=== PATIENT | female | born 2000 | race American Indian/Alaskan Native ===

== ENCOUNTER 2019-09-22 20:38 | Observation (INO) | payer MEDICAID ==
[2019-09-22] MEDS ORDERED: LACTATED RINGERS 1,000 ML IV ONE (20:43)
[2019-09-22 21:11] LABS: Hematocrit 36.1 % (30.3-42.9); Mean Corpuscular HGB Conc 33 % (30-34); Mean Corpuscular Volume 81 fl (79-97); Platelet Count 172 K/mm3 (140-440); Red Blood Count 4.45 M/mm3 (3.65-5.03); Red Cell Distribution Width 14.9 % (13.2-15.2)
[2019-09-22 21:24] LABS: Bacteria,Urine 1+ /HPF (Negative); Bilirubin,Urine NEG (Negative); Blood,Urine NEG (Negative); Color,Urine Yellow (Yellow); Mucus,Urine 3+ /HPF; Urobilinogen,Urine < 2.0 mg/dL (<2.0)
[2019-09-22 21:32] LABS: Alanine Aminotransferase 10 units/L (7-56); Uric Acid 6.1 mg/dL (3.5-7.6)
[2019-09-22 21:37] LABS: Amphetamine Screen,Urine PRESUMPTIVE NEGATIVE; Benzodiazepines Screen,Urine PRESUMPTIVE NEGATIVE; Cocaine Screen,Urine PRESUMPTIVE NEGATIVE; Methadone Screen,Urine PRESUMPTIVE NEGATIVE; Opiate Screen,Urine PRESUMPTIVE NEGATIVE
[2019-09-22 21:57] LABS: Cannabinoid Screen,Urine PRESUMPTIVE POSITIVE
[2019-09-22] MEDS ORDERED: MAGNESIUM SULFATE 40GM/1000ML 40 GM/1,000 ML BAG IV SCH (23:00)
[2019-09-22] MEDS ORDERED: MAGNESIUM SULFATE 4 GM/100 ML BAG IV ONE (23:01)
[2019-09-22] MEDS ORDERED: SENNOSIDES/DOCUSATE SODIUM 8.6/50 MG TAB PO PRN (23:07)
[2019-09-22] MEDS ORDERED: diphenhydrAMINE 25 MG CAP PO PRN (23:07)
[2019-09-22] MEDS ORDERED: SODIUM CHLORIDE NASAL SPRAY 44ML NS PRN (23:07)
[2019-09-22] MEDS ORDERED: MAGNESIUM HYDROXIDE (MOM) ORAL LIQD UDC PO PRN (23:07)
[2019-09-22] MEDS ORDERED: ONDANSETRON 4 MG/2 ML INJ IV PRN (23:07)
[2019-09-22] MEDS ORDERED: guaiFENesin DM 200/20 MG ORAL LIQD 10 ML PO PRN (23:07)
[2019-09-22] MEDS ORDERED: ACETAMINOPHEN 325 MG TAB PO PRN (23:07)
[2019-09-22] MEDS ORDERED: WITCH HAZEL/ GLYCERIN PAD TP PRN (23:07)
[2019-09-22] MEDS ORDERED: SIMETHICONE 80 MG CHEW TAB PO PRN (23:07)
[2019-09-22] MEDS ORDERED: DOCUSATE SODIUM 100 MG CAP PO PRN (23:07)
[2019-09-22] MEDS ORDERED: PSEUDOEPHEDRINE 30 MG TAB PO PRN (23:07)
--- NOTE | 2019-09-22 23:20 | History and Physical Report ---
History of Present Illness Date of examination: 09/22/19 Date of admission: 09/22/19 22:52 Chief complaint: rectal pressure History of present illness: This is a 18 yo G 2P1 at 30 weeks here for rectal pressure. She is a [facility] patient came her without records. Seen by Chris yesterday was supposed to collect a 24 hr urine. Hx of labor. Records sent for but unavailable Past History Past Medical History: no pertinent history Past Surgical History: no surgical history Family/Genetic History: none Social history: single, smoking. denies: alcohol abuse, prescription drug abuse - Obstetrical History Expected Date of Delivery: 12/01/19 Actual Gestation: 30 Week(s) 0 Day(s) : 2 Para: 1 Hx # Term Pregnancies: 0 Number of Pregnancies: 1 Spontaneous Abortions: 0 Induced : 0 Number of Living Children: 1 Medications and Allergies Allergies Allergy/AdvReac Type Severity Reaction Status Date / Time No Known Allergies Allergy Verified 09/22/19 20:42 Home Medications Medication Instructions Recorded Confirmed Last Taken Type Acetaminophen [Tylenol] 2 tab PO 09/22/19 09/22/19 15:00 History Aspirin [Adult Aspirin] 1 tab PO DAILY 09/22/19 09/22/19 09/22/19 History Active Meds: Active Medications Acetaminophen (Tylenol) 650 mg PO Q4H PRN PRN Reason: Pain MILD(1-3)/Fever >100.5/BARROS Al Hydrox/Mg Hydrox/Simethicone (Alum-Mag Hydrox-Simeth [id number]/5ml) 30 ml PO Q6H PRN PRN Reason: Indigestion Betamethasone Acet/Betameth SodPhos (Celestone Soluspan) 12 mg IM Q24HR MAURI Stop: 09/24/19 10:01 Diphenhydramine HCl (Benadryl) 25 mg PO Q6H PRN PRN Reason: Itching Docusate Sodium (Colace) 100 mg PO Q12H PRN PRN Reason: Constipation Guaifenesin (Guaifenesin Dm Syrup) 10 ml PO Q6H PRN PRN Reason: Cough Magnesium Sulfate (Magnesium Sulfate 4gm/100ml) 4 gm in 100 mls @ 300 mls/hr IV ONCE ONE Stop: 09/22/19 23:20 Lactated Ringer's (Lactated Ringers) 1,000 mls @ 125 mls/hr IV DIRECT MAURI Magnesium Sulfate (Magnesium Sulfate 40gm/1000ml) 40 gm in 1,000 mls @ 54 mls/hr IV DIRECT MAURI Magnesium Hydroxide (Milk Of Magnesia) 30 ml PO QHS PRN PRN Reason: Laxative Effect Multivitamins/Iron/Calcium ( Vitamin) 1 each PO QDAY MAURI Ondansetron HCl (Zofran) 4 mg IV Q6H PRN PRN Reason: Nausea And Vomiting Pseudoephedrine HCl (Sudafed) 30 mg PO Q4H PRN PRN Reason: Nasal Congestion Senna/Docusate Sodium (Senokot S) 2 tab PO Q12H PRN PRN Reason: Laxative Effect Simethicone (Mylicon) 80 mg PO Q6H PRN PRN Reason: Gas pain Sodium Chloride (Sodium Chloride Flush Syringe 10 Ml) 10 ml IV PRN PRN PRN Reason: LINE FLUSH Sodium Chloride (Deep Sea) 2 spray NS Q4H PRN PRN Reason: Congestion Witch Carrie/Glycerin (Tucks Pad) 1 each TP PRN PRN PRN Reason: Hemorrhoids Review of Systems All systems: negative - Vital Signs Vital signs: Vital Signs Pulse BP 75 149/97 09/22/19 20:42 09/22/19 20:42 Temp Pulse Resp BP Pulse Ox 98.1 F 66 18 177/113 100 09/22/19 21:12 09/22/19 22:40 09/22/19 21:12 09/22/19 22:30 09/22/19 22:40 - Physical Exam Breasts: Positive: normal Cardiovascular: Regular rate, Normal S1 Lungs: Positive: Clear to auscultation, Normal air movement Abdomen: Positive: normal appearance, soft, normal bowel sounds. Negative: distention, tenderness, guarding Genitourinary (Female): Positive: normal external genitalia, normal perenium Vagina: Positive: normal moisture Uterus: Positive: normal size, normal contour Anus/Rectum: Positive: normal perianal skin Extremities: Positive: normal Deep Tendon Reflex Grade: Normal +2 - Obstetrical FHR: category 1 Results Result Diagrams: 09/22/19 20:54 09/22/19 20:54 Abnormal lab results 09/22/19 09/22/19 Range/Units 20:54 20:54 MCH 27 L (28-32) pg Creatinine 0.6 L (0.7-1.2) mg/dL Lactate Dehydrogenase 320 H (91-180) units/L All other labs normal. Assessment and Plan A/P IUP 30 weeks Elevated BP /Chronic HTN assess for Preeclampsia walk in patient Admit US for presentation , efw, rosi BMZ now PIH labs Mag 4g and 2g continuous monitoring gaspar close monitor of maternal and status
[2019-09-22] MEDS: LACTATED RINGERS 1,000 ML IV SCH (23:35)
[2019-09-22] MEDS ORDERED: MAGNESIUM SULFATE IV SCH (23:45)
[2019-09-22] MEDS ORDERED: SODIUM CHLORIDE 0.9% IV SCH (23:45)
[2019-09-23] MEDS ORDERED: BETAMET ACET/BETAMET NA PH 6 MG/ML INJ 5 ML MDV IM SCH
--- NOTE | 2019-09-23 00:31 | Ultrasound Report ---
Limited OB ultrasound. 09/22/2019. HISTORY: contractions. FINDINGS: A viable intrauterine in the cephalic position is dated 28 weeks 6 days. he art tones are 145 bpm. The placenta is located along the right lateral aspect. Amniotic fluid index is 9.5 cm. Cervical length measures 1.8 cm. IMPRESSION: 1. Viable intrauterine dated 20 weeks 6 days. 2. Cervical length 1.8 cm. Signer Name: John Blair MD Signed: 09/23/2019 12:26 AM Workstation Name: [id number]
[2019-09-23] MEDS ORDERED: fentaNYL 100 MCG/2 ML INJ IV ONE ×2 (02:50→09:17)
[2019-09-23] MEDS ORDERED: fentaNYL 100 MCG/2 ML INJ ONE (02:52)
[2019-09-23] MEDS: ALUM-MAG HYDROXIDE-SIMETHICONE 200-200-20MG/5ML ORAL LIQD 30 ML PO PRN ×2 (04:24→15:49)
--- NOTE | 2019-09-23 09:04 | Progress Note ---
Assessment and Plan A/P IUP 30+1 day Elevated BP /Chronic HTN assess for Preeclampsia walk in patient S/p admission 24 hr urine collection to obtain US shows perhaps SGA s/p 1 dose of bmz today next dose PIH labs normal ON Mag 4g and 2g continuous monitoring close monitor of maternal and status Await MFM consult Subjective - Subjective Date of service: 09/23/19 Principal diagnosis: Elevated BP, IUP 30 weeks , assess for Pree Interval history: This is a 18 yo G 2P1 at 30 weeks here for rectal pressure. She is a [place] patient came her without records. Seen by Chris yesterday was supposed to collect a 24 hr urine. Hx of labor. Records sent for but unavailable Patient reports: movement normal, no new complaints, no loss of fluid, no vaginal bleeding, no contractions Objective - Vital Signs Vital Signs: Vital Signs - 12hr 09/22/19 09/22/19 09/22/19 21:01 21:12 21:15 Temperature 98.1 F Pulse Rate 67 76 Respiratory 18 Rate Blood Pressure 173/91 156/86 O2 Sat by Pulse Oximetry 09/22/19 09/22/19 09/22/19 21:30 22:00 22:07 Temperature Pulse Rate 65 56 L 60 Respiratory Rate Blood Pressure 175/94 180/109 182/98 O2 Sat by Pulse Oximetry 09/22/19 09/22/19 09/22/19 22:15 22:30 22:35 Temperature Pulse Rate 64 66 61 Respiratory Rate Blood Pressure 180/101 177/113 O2 Sat by Pulse 98 99 Oximetry 09/22/19 09/22/19 09/22/19 22:40 23:22 23:37 Temperature Pulse Rate 66 57 L 80 Respiratory Rate Blood Pressure 173/106 175/109 O2 Sat by Pulse 100 100 Oximetry 09/22/19 09/22/19 09/22/19 23:42 23:47 23:48 Temperature Pulse Rate 74 83 Respiratory Rate Blood Pressure O2 Sat by Pulse 100 82 L 84 Oximetry 09/22/19 09/22/19 09/23/19 23:52 23:57 00:00 Temperature Pulse Rate 73 71 71 Respiratory Rate Blood Pressure 143/80 143/80 O2 Sat by Pulse 99 98 Oximetry 09/23/19 09/23/19 09/23/19 00:02 00:07 00:09 Temperature Pulse Rate 82 77 83 Respiratory Rate Blood Pressure 152/84 O2 Sat by Pulse 90 100 Oximetry 09/23/19 09/23/19 09/23/19 00:10 00:12 00:17 Temperature Pulse Rate 91 H 74 Respiratory 18 Rate Blood Pressure O2 Sat by Pulse 100 99 Oximetry 09/23/19 09/23/19 09/23/19 00:22 00:27 00:32 Temperature Pulse Rate 79 66 71 Respiratory Rate Blood Pressure 147/88 O2 Sat by Pulse 100 100 99 Oximetry 09/23/19 09/23/19 09/23/19 00:37 00:42 00:47 Temperature Pulse Rate 68 70 76 Respiratory Rate Blood Pressure O2 Sat by Pulse 99 99 96 Oximetry 09/23/19 09/23/19 09/23/19 00:51 00:52 00:55 Temperature Pulse Rate 74 73 65 Respiratory Rate Blood Pressure 171/82 O2 Sat by Pulse 93 95 Oximetry 09/23/19 09/23/19 09/23/19 01:05 01:10 01:15 Temperature 97.7 F Pulse Rate 68 Respiratory 12 18 Rate Blood Pressure O2 Sat by Pulse 98 Oximetry 09/23/19 09/23/19 09/23/19 01:20 01:25 01:27 Temperature Pulse Rate 74 70 68 Respiratory Rate Blood Pressure 158/100 O2 Sat by Pulse 100 100 Oximetry 09/23/19 09/23/19 09/23/19 01:30 01:35 01:39 Temperature Pulse Rate 69 74 81 Respiratory Rate Blood Pressure O2 Sat by Pulse 100 99 77 L Oximetry 09/23/19 09/23/19 09/23/19 01:40 01:44 01:45 Temperature Pulse Rate 74 73 70 Respiratory Rate Blood Pressure 170/99 O2 Sat by Pulse 100 99 Oximetry 09/23/19 09/23/19 09/23/19 01:50 01:55 02:14 Temperature Pulse Rate 75 78 86 Respiratory Rate Blood Pressure 174/98 O2 Sat by Pulse 98 98 Oximetry 09/23/19 09/23/19 09/23/19 02:44 02:57 02:58 Temperature Pulse Rate 80 75 93 H Respiratory Rate Blood Pressure 179/117 157/90 O2 Sat by Pulse 100 Oximetry 09/23/19 09/23/19 09/23/19 03:03 03:08 03:13 Temperature Pulse Rate 84 74 75 Respiratory Rate Blood Pressure 149/91 O2 Sat by Pulse 100 100 100 Oximetry 09/23/19 09/23/19 09/23/19 03:18 03:23 03:28 Temperature Pulse Rate 76 79 78 Respiratory Rate Blood Pressure O2 Sat by Pulse 100 100 100 Oximetry 09/23/19 09/23/19 09/23/19 03:33 03:38 03:43 Temperature Pulse Rate 75 75 79 Respiratory Rate Blood Pressure 146/91 O2 Sat by Pulse 100 100 100 Oximetry 09/23/19 09/23/19 09/23/19 03:48 03:53 03:58 Temperature Pulse Rate 70 74 73 Respiratory Rate Blood Pressure O2 Sat by Pulse 100 100 100 Oximetry 09/23/19 09/23/19 09/23/19 04:03 04:08 04:13 Temperature Pulse Rate 75 70 84 Respiratory Rate Blood Pressure O2 Sat by Pulse 100 100 100 Oximetry 09/23/19 09/23/19 09/23/19 04:14 04:15 04:26 Temperature Pulse Rate 90 76 80 Respiratory Rate Blood Pressure 142/94 O2 Sat by Pulse 88 100 Oximetry 09/23/19 09/23/19 09/23/19 04:31 04:36 04:41 Temperature Pulse Rate 72 83 75 Respiratory Rate Blood Pressure O2 Sat by Pulse 100 99 100 Oximetry 09/23/19 09/23/19 09/23/19 04:44 04:46 04:51 Temperature Pulse Rate 75 78 85 Respiratory Rate Blood Pressure 148/79 O2 Sat by Pulse 100 99 Oximetry 09/23/19 09/23/19 09/23/19 04:56 05:01 05:06 Temperature Pulse Rate 75 85 98 H Respiratory Rate Blood Pressure O2 Sat by Pulse 100 99 100 Oximetry 09/23/19 09/23/19 09/23/19 05:11 05:13 05:16 Temperature Pulse Rate 84 84 80 Respiratory Rate Blood Pressure 133/83 O2 Sat by Pulse 100 100 Oximetry 09/23/19 09/23/19 09/23/19 05:21 05:43 06:14 Temperature Pulse Rate 78 92 H 83 Respiratory Rate Blood Pressure 142/82 138/82 O2 Sat by Pulse 100 Oximetry 09/23/19 09/23/19 09/23/19 06:31 06:36 06:41 Temperature Pulse Rate 78 83 82 Respiratory Rate Blood Pressure O2 Sat by Pulse 99 98 98 Oximetry 09/23/19 09/23/19 09/23/19 06:43 06:46 06:51 Temperature Pulse Rate 83 90 85 Respiratory Rate Blood Pressure 135/85 O2 Sat by Pulse 97 97 Oximetry 09/23/19 09/23/19 09/23/19 06:56 07:01 07:06 Temperature Pulse Rate 84 86 82 Respiratory Rate Blood Pressure O2 Sat by Pulse 97 97 97 Oximetry 09/23/19 09/23/19 09/23/19 07:11 07:13 07:16 Temperature Pulse Rate 85 86 88 Respiratory Rate Blood Pressure 136/77 O2 Sat by Pulse 97 97 Oximetry 09/23/19 09/23/19 09/23/19 07:21 07:26 07:31 Temperature Pulse Rate 82 79 75 Respiratory Rate Blood Pressure O2 Sat by Pulse 97 97 98 Oximetry 09/23/19 09/23/19 09/23/19 07:36 07:38 07:41 Temperature Pulse Rate 81 86 86 Respiratory Rate Blood Pressure 139/86 O2 Sat by Pulse 98 97 Oximetry 09/23/19 09/23/19 09/23/19 07:43 07:46 07:51 Temperature Pulse Rate 93 H 84 83 Respiratory Rate Blood Pressure 144/84 O2 Sat by Pulse 97 97 Oximetry 09/23/19 09/23/19 09/23/19 07:56 08:01 08:06 Temperature Pulse Rate 90 81 79 Respiratory Rate Blood Pressure O2 Sat by Pulse 97 97 97 Oximetry 09/23/19 09/23/19 09/23/19 08:11 08:14 08:16 Temperature Pulse Rate 89 76 87 Respiratory Rate Blood Pressure 136/88 O2 Sat by Pulse 97 98 Oximetry 09/23/19 09/23/19 09/23/19 08:21 08:26 08:31 Temperature Pulse Rate 78 87 95 H Respiratory Rate Blood Pressure O2 Sat by Pulse 98 99 98 Oximetry 09/23/19 09/23/19 09/23/19 08:36 08:41 08:42 Temperature 97.7 F Pulse Rate 89 88 Respiratory Rate Blood Pressure 143/95 O2 Sat by Pulse 98 99 Oximetry 09/23/19 09/23/19 09/23/19 08:45 08:46 08:51 Temperature Pulse Rate 85 89 78 Respiratory Rate Blood Pressure 144/98 O2 Sat by Pulse 100 99 Oximetry 09/23/19 08:56 Temperature Pulse Rate 84 Respiratory Rate Blood Pressure O2 Sat by Pulse 99 Oximetry - Exam Breasts: normal Cardiovascular: Regular rate, Normal S1 Lungs: Clear to auscultation, Normal air movement Abdomen: Present: normal appearance, soft, normal bowel sounds. Absent: distention, tenderness, guarding Uterus: Present: normal, firm, fundal height above umbilicus. Absent: bogginess, tenderness FHR: auscultation normal, category 1 Extremities: normal Deep Tendon Reflex Grade: Normal +2 - Labs Labs: Abnormal Labs 09/22/19 09/22/19 09/23/19 20:54 20:54 06:10 MCH 27 L Creatinine 0.6 L Magnesium 4.50 H Lactate Dehydrogenase 320 H Laboratory Results - last 24 hr 09/22/19 09/22/19 09/22/19 20:54 20:54 20:54 WBC 8.6 RBC 4.45 Hgb 12.0 Hct 36.1 MCV 81 MCH 27 L MCHC 33 RDW 14.9 Plt Count 172 Creatinine 0.6 L Estimated GFR > 60 Uric Acid 6.1 Magnesium AST 18 ALT 10 Lactate Dehydrogenase 320 H Urine Color Yellow Urine Turbidity Clear Urine pH 6.0 Ur Specific [place] 1.026 Urine Protein 100 mg/dl Urine Glucose (UA) Neg Urine Ketones Neg Urine Blood Neg Urine Nitrite Neg Urine Bilirubin Neg Urine Urobilinogen < 2.0 Ur Leukocyte Esterase Sm Urine WBC (Auto) 2.0 Urine RBC (Auto) 3.0 U Epithel Cells (Auto) 3.0 Urine Bacteria (Auto) 1+ Urine Mucus 3+ Urine Opiates Screen Urine Methadone Screen Ur Barbiturates Screen Ur Phencyclidine Scrn Ur Amphetamines Screen U Benzodiazepines Scrn Urine Cocaine Screen U Marijuana (THC) Screen Drugs of Abuse Note Syphilis IgG Antibody Hep Bs Antigen Rubella IgG Antibody Blood Type Antibody Screen 09/22/19 09/22/19 09/22/19 20:54 22:00 22:00 WBC RBC Hgb Hct MCV MCH MCHC RDW Plt Count Creatinine Estimated GFR Uric Acid Magnesium AST ALT Lactate Dehydrogenase Urine Color Urine Turbidity Urine pH Ur Specific [place] Urine Protein Urine Glucose (UA) Urine Ketones Urine Blood Urine Nitrite Urine Bilirubin Urine Urobilinogen Ur Leukocyte Esterase Urine WBC (Auto) Urine RBC (Auto) U Epithel Cells (Auto) Urine Bacteria (Auto) Urine Mucus Urine Opiates Screen Presumptive negative Urine Methadone Screen Presumptive negative Ur Barbiturates Screen Presumptive negative Ur Phencyclidine Scrn Presumptive negative Ur Amphetamines Screen Presumptive negative U Benzodiazepines Scrn Presumptive negative Urine Cocaine Screen Presumptive negative U Marijuana (THC) Screen Presumptive positive Drugs of Abuse Note Disclamer Syphilis IgG Antibody Non-reactive Hep Bs Antigen Rubella IgG Antibody Blood Type A POSITIVE Antibody Screen Negative 09/22/19 09/22/19 09/23/19 22:00 22:00 06:10 WBC RBC Hgb Hct MCV MCH MCHC RDW Plt Count Creatinine Estimated GFR Uric Acid Magnesium 4.50 H AST ALT Lactate Dehydrogenase Urine Color Urine Turbidity Urine pH Ur Specific [place] Urine Protein Urine Glucose (UA) Urine Ketones Urine Blood Urine Nitrite Urine Bilirubin Urine Urobilinogen Ur Leukocyte Esterase Urine WBC (Auto) Urine RBC (Auto) U Epithel Cells (Auto) Urine Bacteria (Auto) Urine Mucus Urine Opiates Screen Urine Methadone Screen Ur Barbiturates Screen Ur Phencyclidine Scrn Ur Amphetamines Screen U Benzodiazepines Scrn Urine Cocaine Screen U Marijuana (THC) Screen Drugs of Abuse Note Syphilis IgG Antibody Hep Bs Antigen Non-reactive Rubella IgG Antibody Immune Blood Type Antibody Screen
[2019-09-23] MEDS: LACTATED RINGERS 1,000 ML IV SCH (09:39)
[2019-09-23] MEDS ORDERED: PRENATAL VIT27-FE FUMARATE-FOLIC ACID VIT TAB PO SCH (10:00)
[2019-09-23] MEDS ORDERED: ACETAMINOPHEN W/CODEINE 300-30 MG TAB PO ONE (13:20)
--- NOTE | 2019-09-23 16:12 | Consultation ---
History of Present Illness Consult date: 09/23/19 Requesting physician: MARIA DEL CARMEN CARO Reason for consult: gestational hypertension History of present illness: To: Aureliano Caro MD et al, From: Charlene Elizondo M.D. RE: WADE CANCHOLA (: 98 ) IUP at 28 weeks 6 days gestation (?). Chronic hypertension. Rule out superimposed preeclampsia New onset headache. Await medical records from [facility] DATE: Monday, September 23, 2019 As you are aware, this is a 18 year old para 0101 who is currently at 28 weeks 6 days (?) gestation based on an MYRA of 12/01/19 Patient has been followed at [facility] and presented to [facility] with a complaint of elevated blood pressure at home. Her history is significant for a previous complicated by superimposed preeclampsia with HELLP syndrome. Patient was hospitalized and noted to have elevated blood pressure. At the time of my evaluation she had mild headache but denied shortness of breath. Her 24 hour urine is PENDING. She denied or dizziness or blurred vision. Her blood pressure is labile (see below). There are no signs of placental abruption. Her FHR is Category 1. Past History Past Medical History: no pertinent history Past Surgical History: no surgical history Family/Genetic History: none - Obstetrical History : 2 Medications and Allergies Allergies Allergy/AdvReac Type Severity Reaction Status Date / Time No Known Allergies Allergy Verified 09/22/19 20:42 Home Medications Medication Instructions Recorded Confirmed Last Taken Type Aspirin [Adult Aspirin] 1 tab PO DAILY 09/22/19 09/23/19 09/22/19 History Active Meds: Active Medications Acetaminophen (Tylenol) 650 mg PO Q4H PRN PRN Reason: Pain MILD(1-3)/Fever >100.5/BARROS Last Admin: 09/23/19 00:10 Dose: 650 mg Documented by: Al Hydrox/Mg Hydrox/Simethicone (Alum-Mag Hydrox-Simeth [id number]/5ml) 30 ml PO Q6H PRN PRN Reason: Indigestion Last Admin: 09/23/19 15:49 Dose: 30 ml Documented by: Betamethasone Acet/Betameth SodPhos (Celestone Soluspan) 12 mg IM Q24H MAURI Stop: 09/24/19 00:01 Last Admin: 09/22/19 23:37 Dose: 12 mg Documented by: Diphenhydramine HCl (Benadryl) 25 mg PO Q6H PRN PRN Reason: Itching Docusate Sodium (Colace) 100 mg PO Q12H PRN PRN Reason: Constipation Guaifenesin (Guaifenesin Dm Syrup) 10 ml PO Q6H PRN PRN Reason: Cough Last Admin: 09/23/19 00:29 Dose: 10 ml Documented by: Lactated Ringer's (Lactated Ringers) 1,000 mls @ 125 mls/hr IV DIRECT [facility] Last Admin: 09/23/19 09:39 Dose: 125 mls/hr Documented by: Magnesium Sulfate (Magnesium Sulfate 40gm/1000ml) 40 gm in 1,000 mls @ 54 mls/hr IV DIRECT [facility] Last Admin: 09/22/19 23:49 Dose: 54 mls/hr Documented by: Labetalol HCl (Labetalol) 100 mg PO BID [facility] Last Admin: 09/23/19 09:37 Dose: 100 mg Documented by: Labetalol HCl (Labetalol) 20 mg IV Q30MIN PRN PRN Reason: Blood Pressure Magnesium Hydroxide (Milk Of Magnesia) 30 ml PO QHS PRN PRN Reason: Laxative Effect Multivitamins/Iron/Calcium ( Vitamin) 1 each PO QDAY [facility] Last Admin: 09/23/19 09:37 Dose: 1 each Documented by: Ondansetron HCl (Zofran) 4 mg IV Q6H PRN PRN Reason: Nausea And Vomiting Pseudoephedrine HCl (Sudafed) 30 mg PO Q4H PRN PRN Reason: Nasal Congestion Senna/Docusate Sodium (Senokot S) 2 tab PO Q12H PRN PRN Reason: Laxative Effect Simethicone (Mylicon) 80 mg PO Q6H PRN PRN Reason: Gas pain Sodium Chloride (Sodium Chloride Flush Syringe 10 Ml) 10 ml IV PRN PRN PRN Reason: LINE FLUSH Sodium Chloride (Deep Sea) 2 spray NS Q4H PRN PRN Reason: Congestion Witch Carrie/Glycerin (Tucks Pad) 1 each TP PRN PRN PRN Reason: Hemorrhoids - Vital Signs Vital signs: Vital Signs Pulse BP 75 149/97 09/22/19 20:42 09/22/19 20:42 Temp Pulse Resp BP Pulse Ox 97.9 F 95 H 18 145/89 98 09/23/19 15:50 09/23/19 15:22 09/23/19 01:10 09/23/19 15:22 09/23/19 11:48 Results Result Diagrams: 09/22/19 20:54 09/22/19 20:54 Abnormal lab results 09/22/19 09/22/19 09/23/19 Range/Units 20:54 20:54 06:10 MCH 27 L (28-32) pg Creatinine 0.6 L (0.7-1.2) mg/dL Magnesium 4.50 H (1.7-2.3) mg/dL Lactate Dehydrogenase 320 H (91-180) units/L 09/23/19 Range/Units 14:15 MCH (28-32) pg Creatinine (0.7-1.2) mg/dL Magnesium 4.60 H (1.7-2.3) mg/dL Lactate Dehydrogenase (91-180) units/L All other labs normal. Assessment and Plan PAST OBSETRICAL HISTORY: 2019: CS at 27 weeks due to severe superimposed preeclampsia with HELLP and thrombocytopenia. BW: 1 pound 9 oz. Patient does NOT have a history of CHTN but she has been taking Labetalol prior to admission. Since hospitalized she has been on Labetalol. Current Blood pressure: 171/88, 165/87, 114/112, 159/91, 170/105 PREVIOUS SURGICAL HISTORY: CS in 2018 Breast reduction Biopsy at [place] (type unknown) See report in patients chart. PAST MEDICAL HISTORY: See reports in patient's chart. ULTRASOUND AT [facility] (?): There is a single viable intrauterine with Viable IUP at 20 weeks 6 days Tried to contact [facility] to confirm EFW. No answer NO biometry noted. No ultrasound from [facility] available NEED TO GET REPEAT ULTRASOUND WITH EFW, AND CONFIRMATION OF EGA Right lateral placenta intact. heart rate 145 beats per minute. CODIE is 9.5 cm. AVAILABLE LABS: 24 HOUR URINE: PENDING. WBC: 8.6 Hgb: 12.0 HCT: 36.1 PLT: 172 AST: 18 ALT: 10 ASSESSMENT IUP at 28 weeks 6 days gestation (by LMP) care at [facility], no records available. No previous ultrasounds available. Chronic hypertension. Rule out superimposed preeclampsia New onset headache Recommend REPEAT ULTRASOUND FOR EFW, BIOMETRY AND CONFIRMATION OF EGA. Stabalize blood pressure due to suspected superimposed preeclampsia Increase Labetalol Monitor Patient is NOT a candidate for discharge.. RECOMMENDATIONS: 1. We would recommend continued inpatient management for this patient. 2. Patient is NOT a candidate for outpatient management. 3. Recommend REPEAT ULTRASOUND 4. Steroids for lung maturation. 5. We are in agreement with her current management. 6. Magnesium sulfate for eclampsia prophylaxis and neuroprotection 7. Call [facility] with results of ultrasoun. 8. We agree with increased Labetalol. 9. At present; there is NO indication for delivery; however I would monitor closely for the signs and symptoms of severe preeclampsia noted below. 10. At 28 weeks gestation (if confirmed by follow-up ultrasound and [facility]); it would appear that there is some benefit to an expectant management protocol to prolong gestation in order to improve outcome without increasing maternal morbidity. 11. In a patient with MILD preeclampsia we recommend DELIVERY at 37 weeks. 12. In a patient with SEVERE preeclampsia we recommend DELIVERY either AT DIAGNOSIS or at 34 weeks gestation. Reference: REFERENCE: Medically indicated late- and early-term deliveries. Committee Opinion No. [id number]. [employer]. Obstet Gynecol 2013;121:63212. 13. The indications for discontinuation of expectant management and DELIVERY in this patient would include ANY of the following: heart rate abnormalities, (ie, bradycardia , repetitive late or variable decelerations) Significant new onset proteinuria Thrombocytopenia Hemolysis, Elevation in liver function tests Blood pressure that is very labile or poorly controlled with reasonable doses of intravenous labetalol Symptoms of severe pre-eclampsia epigastric discomfort, headache, dizziness, blurred vision, RUQ pain, seizure. Standard obstetrical indications Thank you for allowing us to participate in the care of this patient. We look forward to the opportunity to assist in her continued management. If you have any questions, we may be reached [phone]. Charlene Elizondo M.D.
--- NOTE | 2019-09-23 18:27 | Ultrasound Report ---
ULTRASOUND OBSTETRIC Indication: Need biomety and EFW Findings: There is a single intrauterine . BPD = 7.3 cm = 29 weeks, 1 day(s). Head circumference = 27.1 cm = 29 weeks, 4 day(s). Abdominal circumference = 22.2 cm = 26 weeks, 4 day(s). Femur length = 5.3 cm = 28 weeks, 1 day(s). Overall estimated sonographic age = 28 weeks, 3 day(s). heart rate is 120 beats per minute. Estimated weight is 1094 grams position is cephalic. Cervix appears closed. movement is present. Placenta is posterior and grade 1 . Amniotic fluid volume appears normal. Amniotic fluid index is 11.5 cm. Maternal adnexa appear normal. Visualized structures appear grossly normal. Impression: 1. Single living intrauterine with estimated sonographic age of 28 weeks, 3 day(s). 2. No sonographic abnormality identified. Signer Name: Milton Mcgee MD Signed: 09/23/2019 6:23 PM Workstation Name: [id number]
[2019-09-23] MEDS ORDERED: METOCLOPRAMIDE 10 MG TAB PO PRN (19:54)
[2019-09-23] MEDS ORDERED: ZOLPIDEM 5 MG TAB PO PRN (19:55)
[2019-09-23 21:50] VITALS: BP 155/79
[2019-09-24] MEDS ORDERED: ASPIRIN 81 MG TAB CHEW PO SCH (10:00)
[2019-10-02 13:22] LABS: HIV-1 Antibody Differentiation SEE SCANNED RESULT; HIV-2 Antibody Differentiation SEE SCANNED RESULT
== END 2019-09-23 23:10 | disposition left against medical advice (07) ==
LOC: TRG 20:38 → LD 22:52
PROVIDERS: ADMIT Obstetrics & Gynecology; ATTEND Obstetrics & Gynecology
DX: O16.3 Unspecified maternal hypertension, third trimester (principal); O26.893 Other specified pregnancy related conditions, third trimester; O99.333 Smoking (tobacco) complicating pregnancy, third trimester; F17.200 Nicotine dependence, unspecified, uncomplicated; R51 Headache; Z3A.30 30 weeks gestation of pregnancy; Z79.82 Long term (current) use of aspirin
CPT/HCPCS: 36415; 59025; 76805; 80307; 81001; 82565; 83615; 83735; 84450; 84460; 84550; 85027; 86592; 86689; 86706; 86762; 86850; 86900; 86901; 96365; 96366; 96372; 96375; 96376; G0378; J0702; J3010; J3475; J7120; 96360; 96361